=== PATIENT | female | born 1950 | race Caucasian/White ===

== ENCOUNTER 2017-12-01 04:15 | Day surgery (SDC) | payer OTHER ==
[~2017-12-01 04:15] MED LIST: ATIVAN2 M1 PO; COZAAR100 MG PO; LEVO-T50 MCG PO; TOPROL XL50 M1 PO
[2017-12-01] MEDS ORDERED: KEFLEX250 MG PO (12:31)
[2017-12-01] MEDS ORDERED: ULTRACET PO (12:32)
== END 2017-12-01 14:00 | disposition home or self-care (01) ==
LOC: CIR.AMB 04:15
DX: N39.41 Urge incontinence (principal); N32.81 Overactive bladder
CPT/HCPCS: 64581; C1778

== ENCOUNTER 2017-12-08 04:30 | Day surgery (SDC) | payer OTHER ==
[~2017-12-08 04:30] MED LIST changes: +KEFLEX250 MG PO; +ULTRACET PO
== END 2017-12-08 13:25 | disposition home or self-care (01) ==
LOC: CIR.AMB 04:30
DX: N39.41 Urge incontinence (principal); N32.81 Overactive bladder
CPT/HCPCS: 64590; C1767

== ENCOUNTER 2020-04-10 06:15 | Day surgery (SDC) | payer OTHER ==
[~2020-04-10 06:15] MED LIST changes: +DETROL2 MG PO; +NORVASC2.5 M1 PO
[2020-04-10] MEDS ORDERED: MACROBID 100 M100 MG PO (11:04)
== END 2020-04-10 15:09 | disposition home or self-care (01) ==
LOC: CIR.AMB 06:15
PROVIDERS: ATTEND Obstetrics & Gynecology Gynecology
DX: N30.10 Interstitial cystitis (chronic) without hematuria (principal); Z20.828 Contact with and (suspected) exposure to other viral communicable diseases

== ENCOUNTER 2021-09-10 05:22 | Day surgery (SDC) | payer OTHER ==
[~2021-09-10 05:22] MED LIST changes: +AVAPRO150 MG PO; +CARDURA PO; +DOXAZOSIN MESYLA2 MG PO; +IRBESARTAN150 MG PO; +LORAZEPAM2 MG PO; +LOREEV XR2 MG PO; +MACROBID 100 M100 MG PO; +TIROSINT50 MCG PO
[2021-09-10] MEDS ORDERED: ULTRACET PO (10:50)
[2021-09-10] MEDS ORDERED: CEPHALEXIN750 MG PO (10:50)
== END 2021-09-10 15:10 | disposition home or self-care (01) ==
LOC: CIR.AMB 05:22
PROVIDERS: ATTEND Obstetrics & Gynecology Gynecology
DX: N30.10 Interstitial cystitis (chronic) without hematuria (principal); N39.41 Urge incontinence; N32.81 Overactive bladder; Z46.2 Encounter for fitting and adjustment of other devices related to nervous system and special senses